=== PATIENT | male | born 2000 | race Two or more races ===

== ENCOUNTER 2022-06-26 10:17 | Emergency (ER) | payer MEDICAID, OTHER ==
[~2022-06-26] VITALS: Ht 165.1 cm; Wt 93.0 kg
[2022-06-26 10:27] VITALS: BP 150/88
--- NOTE | 2022-06-26 11:20 | NUR ---
Patient discharged to home in stable condition. Written and verbal after care instructions given. Patient verbalizes understanding of instruction.
== END 2022-06-26 11:20 | disposition home or self-care (01) ==
LOC: ER 10:26
DX: S90.32XA Contusion of left foot, initial encounter (principal); W17.89XA Other fall from one level to another, initial encounter; Y93.89 Activity, other specified; Y92.89 Other specified places as the place of occurrence of the external cause; Y99.8 Other external cause status
CPT/HCPCS: 73630-TC